=== PATIENT | male | born 1930 | race Caucasian/White ===

== ENCOUNTER → 2016-11-17 | Outpatient (CLI) | payer OTHER | END | disposition home or self-care (01) | LOC: CT 10:33 | DX: J92.0 Pleural plaque with presence of asbestos (principal); R06.02 Shortness of breath; Z90.49 Acquired absence of other specified parts of digestive tract; Z95.1 Presence of aortocoronary bypass graft ==

== ENCOUNTER → 2018-02-14 | Outpatient (CLI) | payer OTHER ==
[~2018-02-14] MED LIST: ATORVASTATIN CA20 M1 PO; CARVEDILOL6.25 MG PO; LISINOPRIL20 MG PO; TAMSULOSIN HCL0.4 MG PO
[2018-02-14 09:30] LABS: CREATININE 1.37 mg/dL (0.70-1.30); POTASSIUM 4.4 mmol/L (3.5-5.1)
== END | disposition home or self-care (01) ==
LOC: LAB 08:29
PROVIDERS: Family Medicine
DX: I10 Essential (primary) hypertension (principal); E78.5 Hyperlipidemia, unspecified